=== PATIENT | male | born 1970 | race Caucasian/White ===

== ENCOUNTER 2020-09-19 13:24 | Outpatient (REF) | payer MEDICARE, MEDICAID, SELFPAY ==
[2020-09-19 14:39] LABS: Basophils Absolute Auto 0.1 X10*3/uL (0.0-0.2); Basophils Percent Auto 0.9 % (0-2); Eosinophils Absolute Auto 0.2 X10*3/uL (0.0-0.4); Eosinophils Percent Auto 2.1 % (0-4); Hematocrit 42.6 % (42-52); Hemoglobin 14.3 g/dl (14.0-18.0); Imm Gran Abs Auto 0.05 X10*3/uL (0.00-0.03); Imm Gran Pct Auto 0.5 % (0.0-0.4); MANUAL DIFF FLAG SCAN; Mean Corpuscular HGB Conc 33.6 g/dl (31.0-36.0); Mean Corpuscular Hemoglobin 29.5 pg (27.0-33.0); Monocytes Absolute Auto 1.1 X10*3/uL (0.1-1.2); Monocytes Percent Auto 10.3 % (2-11); Neutrophils Absolute Auto 5.9 X10*3/uL (2.0-8.3); Neutrophils Percent Auto 57.2 % (45-73); PLT CLUMP 1; Red Blood Count 4.84 X10*6/uL (4.60-5.80); Red Cell Distribution Width 12.7 % (11.0-16.0); SCAN SMEAR FLAG 1
[2020-09-19 14:55] LABS: Platelet Count 221 X10*3/uL (160-400); White Blood Count 10.3 X10*3/uL (4.8-10.8)
[2020-09-19 14:56] LABS: SLIDE REVIEW VERIFIED
[2020-09-19 15:07] LABS: Alanine Aminotransferase 48 U/L (0-40); Albumin Level 4.3 g/dL (3.5-5.0); Alkaline Phosphatase 59 U/L (39-117); Anion Gap 11 (12-20); Aspartate Amino Transferase 31 U/L (5-37); Blood Urea Nitrogen 11 mg/dL (9-16); Calcium 8.9 mg/dL (8.4-10.2); Carbon Dioxide 28 mmol/L (22-29); Chloride 102 mmol/L (96-108); Cholesterol 175 mg/dL; Estimated Glomerular Filt Rate > 60; Glucose Random 89 mg/dL (60-115); HDL Cholesterol 41 mg/dL; LDL Cholesterol Calculated 99 mg/dl; Potassium 4.4 mmol/L (3.3-5.1); Sodium 137 mmol/L (135-145); Total Protein 6.6 g/dL (6.5-8.0); Triglycerides 179 mg/dL
[2020-09-19 15:27] LABS: Free T4 (Free Thyroxine) 0.99 ng/dL (0.71-1.85); Thyroid Stimulating Hormone 1.31 uIU/mL (0.32-4.0)
[2020-09-20 18:56] LABS: Folate 15.5 ng/mL (> or = 4.0); Vitamin B12 270 pg/mL (200-900)
== END 2020-09-19 13:25 | disposition home or self-care (01) ==
LOC: HO.LAB 13:24
PROVIDERS: PCP Internal Medicine; Visit Provider Internal Medicine
DX: E66.01 Morbid (severe) obesity due to excess calories (principal); E78.00 Pure hypercholesterolemia, unspecified; Z68.41 Body mass index [BMI] 40.0-44.9, adult
CPT/HCPCS: 36415; 80053; 80061; 82607; 82746; 84439; 84443; 85025

== ENCOUNTER → 2021-08-19 13:05 | Outpatient (BNVA) | payer MEDICARE, MEDICAID, SELFPAY | PROVIDERS: PCP Internal Medicine; Referring Provider Internal Medicine; Visit Provider Physician Assistant | DX: Z12.11 Encounter for screening for malignant neoplasm of colon (principal) | CPT/HCPCS: 99202 ==

== ENCOUNTER 2023-09-07 10:21 | Outpatient (AMB) | payer MEDICARE, MEDICAID, SELFPAY ==
--- NOTE | 2023-09-07 10:22 | A.OFFPC_ITS ---
Vital Signs 09/07/23 10:23 Height 6 ft 2 in Weight 287 lb BMI 36.8 BP 106/68 Blood Pressure Location Lt brachial Position Sitting Pulse 64 Pulse Source Pulse Oximeter Pulse Oximetry (%) 99 Oxygen Delivery Method Room Air Intake Visit Reasons: Annual exam Intake Note: Patient is here today for a physical. 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 Technician Required: No Allergies Penicillins [PENICILLINS] Allergy (Mild, Verified 09/07/23 10:23) UNKNOWN Medication List - Last Reconciled 09/07/23 by Geoff Jackson MD acetaminophen 650 mg (2 x 325 mg) PO Q4H PRN bisacodyl (Dulcolax (bisacodyl)) 10 mg (2 x 5 mg) PO ONCE 1 day cholecalciferol (vitamin D3) (Vitamin D3) 25 mcg PO QAM clonazepam 2 mg PO BID PRN dextromethorphan-guaifenesin 5-100 mg/5 mL (Robitussin Cough-Chest Congestion DM) 10 mL PO .Q 4 hours PRN docusate calcium (Stool Softener (docusate calcium)) 240 mg PO QAM fluoxetine (Prozac) 20 mg PO DAILY lorazepam 2 mg PO DAILY PRN magnesium citrate 150 mL PO DAILY polyethylene glycol 3350 (Miralax) 238 grams PO ONCE 1 day risperidone (Risperdal) 2 mg PO BEDTIME risperidone (Risperdal) 1 mg PO DAILY Tobacco use date assessed: 09/07/23 Dental Screening Dental Screen Date: 09/07/23 HPI Annual exam HPI Details 53-year-old obese male with mental behav ior problem, autism coming in for physical exam last seen in November 2022. Patient had a Cologuard test October 13-. [facility] Medical History (Updated 12/15/22 @ 15:15 by Geoff Jackson MD) COVID-19 vaccine series completed Colon cancer screening Obesity (BMI 30-39.9) Vitamin B12 deficiency Obsessive compulsive disorder Impulse control disorder Mental and behavioral problem Autism Surgical History No pertinent past surgical history Family History Father No problems noted. Mother Colon cancer Social History Household Members Other:: resides in skilled nursing Housing: Other Housing Other:: skilled nursing Patient Tobacco Use Status: Never used Tobacco e-Cigarette/Vaping Use: Never Used Second Hand Smoke Exposure: No Current occupational status: disabled Cognitive needs: No Hearing needs: No Vision needs: No Questionnaire PHQ-9 Over the last 2 weeks, how often have you been bothered by any of the following problems? 1. Little interest or pleasure in doing things: not at all 2. Feeling down, depressed, or hopeless: not at all 3. Trouble falling or staying asleep, or sleeping too much: not at all 4. Feeling tired or having little energy: not at all 5. Poor appetite or overeating: not at all 6. Feeling bad about yourself - or that you are a failure or have let yourself or your family down: not at all 7. Trouble concentrating on things, such as reading the newspaper or watching television: not at all 8. Moving or speaking so slowly that other people could have noticed. Or the opposite - being so fidgety or restless that you have been moving around a lot more than usual: not at all 9. Thoughts that you would be better off or of hurting yourself in some way: not at all Total score: 0 Depression Screening Interpretation: Negative Depression Screening Done: Yes Source: Developed by Drs. Stew Marie, Luisa Holden, Bowen Garcia and colleagues, with an educational syl from [employer]. Thrive Questionnaire Date Thrive assessed: 09/07/23 I am a: Parent/Caregiver What is your living situation today?: I have a steady place to live Within the past 12 months, did the food you bought not last and you didn't have the money to get more?: Never true Within the past 12 months, did you worry whether your food would run out before you got money to buy more?: Never true Do you have trouble paying for medicines?: No Do you have trouble getting transportation to medical appointments?: No Do you have trouble paying your heating and electricity bill?: No Do you have trouble taking care of your child, family member or friend?: No Do you have trouble with day-to-day activities such as bathing, preparing meals, shopping, managing finances, etc.?: No Are you currently unemployed and looking for a job?: No Are you interested in more education?: No Please select the resources that you would like help with: None Currently or been in a relationship where the following occur: no concerns reported THRIVE Score: 0 AUDIT C Alcohol Use Questionnaire (AUDIT-C) 1. How often do you have a drink containing alcohol?: Never 3. How often do you have six or more drinks on one occasion?: Never Total Score: 0 KAILEY-7 AMB Questionnaire KAILEY-7 Date KAILEY - 7 assessed: 09/07/23 Feeling nervous, anxious, or on edge: 0 = Not at all Not being able to stop or control worryin = Not at all Worrying too much about different things: 0 = Not at all Trouble relaxin = Not at all Being so restless that it is hard to sit still: 0 = Not at all Becoming easily annoyed or irritable: 0 = Not at all Feeling afraid as if something awful might happen: 0 = Not at all Total KAILEY-7 score (0-4 normal; 5-9 mild; 10-14 moderate; 15-21 severe): 0 Source: Developed by Drs. Stew Marie, Luisa Holden, Bowen Garcia and colleagues, with an educational syl from [employer]. Review of Systems Const Denies poor appetite and Denies weakness Eyes Denies no additional complaints ENT Reports Normal hearing present, Denies dizziness, Denies nasal congestion, Denies tinnitus and Denies sore throat Card Denies chest pain, Denies syncope, Denies rapid heart rate and Denies dyspnea Resp Denies cough and Denies dyspnea GI Denies change in stool character, Reports constipation, Denies diarrhea, Denies nausea and Denies vomiting Denies dysuria and Denies urinary frequency Neuro Reports Normal hearing present, Denies confusion, Denies dizziness, Denies syncope and Denies weakness Psych Denies confusion Physical exam (Primary Care) Vital Signs: Last Vital Signs Pulse 64 09/07/23 10:23 BP 106/68 09/07/23 10:23 Pulse Ox 99 09/07/23 10:23 Oxygen Delivery Method Room Air 09/07/23 10:23 BMI result Body Mass Index 36.8 Tobacco/Smoking Status: Tobacco use Status Tobacco use date assessed 09/07/23 09/07/23 10:29 Patient Tobacco Use Status Never used Tobacco 09/07/23 10:29 e-Cigarette/Vaping Use Never Used 09/07/23 10:29 PHQ-9: PHQ-9 Score PHQ-9: Total score 0 09/07/23 10:29 Depression Screening Interpretation: Negative Thrive Assessment: Date of Thrive Assessment Date Thrive assessed 09/07/23 09/07/23 10:29 Currently or been in a relationship where the following occur: no concerns reported Const General: No confusion Orientation/consciousness: No confusion HENMT Head: Yes normocephalic Ears: external ears normal and TM's normal bilaterally Face and sinus: Yes normal facial exam Mouth: moist mucous membranes Throat: Yes tonsils normal Eyes Conjunctivae: conjunctivae normal Pupils: Equal, round and reactive pupils present and Pupil accommodation reflex normal Direct Ophthalmoscopy: normal light reflex Neck Neck: No lymphadenopathy Thyroid: Thyroid normal Chest Chest palpation & inspection: normal inspection of the chest Resp Effort & Inspection: normal respiratory effort and no audible wheezes Auscultation: clear to auscultation bilaterally, no crackles, no wheezes and lung sounds not diminished Cardio Rate: regular rate Rhythm: regular rhythm Peripheral pulses: radial pulses present and dorsalis pedis present GI Other: Cologuard test 2022- Palpation (GI): no masses Auscultation: normal bowel sounds and normoactive bowel sounds Rectal Exam - Male: Yes deferred Male General Exam: Yes normal external exam Skin General skin exam: no rashes or lesions noted Rashes: no rashes Neuro General: No confusion Cranial nerves: Yes Equal, round and reactive pupils present and Yes Normal hearing present Cognition (Neuro): normal cognition Gait exam (Neuro): Normal gait present Motor exam (neuro): 5/5 motor strength present throughout Deep tendon reflexes (DTR's): Right brachioradialis reflex intensity grade: 2+, Left brachioradialis reflex intensity grade: 2+, Right patellar reflex intensity grade: 2+ and Left patellar reflex intensity grade: 2+ Extrem General: No edema Assessment and Plan Assessment & Plan (1) Annual physical exam: Code(s): Z00.00 - Encounter for general adult medical examination without abnormal findings (2) Obesity: Code(s): E66.9 - Obesity, unspecified Qualifiers: Obesity type: due to excess calories Obesity classification: adult class 3 (BMI >= 40) Serious obesity comorbidity presence: without serious comorbidity Body mass index: BMI 40.0-44.9 Qualified Code(s): E66.01 - Morbid (severe) obesity due to excess calories; Z68.41 - Body mass index [BMI]40.0- 44.9, adult Plan: Continue with diet and exercise (3) Mental and behavioral problem: Code(s): F48.9 - Nonpsychotic mental disorder, unspecified; 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 Mackay Code(s): F84.0 - Autistic disorder Plan: Continue with psychiatry exam Coding Level of Care Code Est Pt Prev Care 40-64y(81842) Diagnoses Annual physical exam Z00.00 Class 3 severe obesity due to excess calories without serious comorbidity with body mass index (BMI) of 40.0 to 44.9 in adult E66.01; Z68.41 Obesity type: due to excess calories Obesity classification: adult class 3 (BMI >= 40) Serious obesity comorbidity presence: without serious comorbidity Body mass index: BMI 40.0-44.9 Mental and behavioral problem F48.9; F69 Autism F84.0
[2023-09-07 10:23] VITALS: BP 106/68; PULSE 64; O2SAT 99; BMI 36.8
== END 2023-09-07 12:36 | disposition home or self-care (01) ==
PROVIDERS: Visit Provider Internal Medicine
DX: Z00.00 Encounter for general adult medical examination without abnormal findings (principal); E66.01 Morbid (severe) obesity due to excess calories; Z68.41 Body mass index [BMI] 40.0-44.9, adult; F48.9 Nonpsychotic mental disorder, unspecified; F69 Unspecified disorder of adult personality and behavior; F84.0 Autistic disorder
CPT/HCPCS: 99396

== ENCOUNTER 2023-12-10 11:22 | Outpatient (AMB) | payer MEDICARE, MEDICAID, SELFPAY ==
[2023-12-10 11:23] VITALS: BP 128/80; PULSE 65; O2SAT 99; BMI 36.1
--- NOTE | 2023-12-10 11:23 | A.OFFVIS_ITS ---
Intake Vital Signs 12/10/23 11:23 Height 6 ft 2 in Weight 281 lb BMI 36.1 BP 128/80 Blood Pressure Location Lt brachial Position Sitting Pulse 65 Pulse Source Pulse Oximeter Pulse Oximetry (%) 99 Oxygen Delivery Method Room Air Intake Visit Reasons: AWV Allergies Penicillins [PENICILLINS] Allergy (Mild, Verified 12/10/23 11:23) UNKNOWN HPI AWV HPI Details 53-year-old obese male with autism nash castano in for annual well visit last seen in August 2023. Had a physical at that time Cologuard testing September 2022. Noted last blood work in 2020 to have elevated liver function test. [facility]ed [facility] Medical History (Updated 12/15/22 @ 15:15 by Geoff Jackson MD) COVID-19 vaccine series completed Colon cancer screening Obesity (BMI 30-39.9) Vitamin B12 deficiency Obsessive compulsive disorder Impulse control disorder Mental and behavioral problem Autism Surgical History No pertinent past surgical history Family History (Updated 12/10/23 @ 11:24 by Shandra Lama CMA) Father No problems noted. Mother Colon cancer Social History Household Members Other:: resides in [facility] Housing: Other Housing Other:: [facility] Patient Tobacco Use Status: Never used Tobacco e-Cigarette/Vaping Use: Never Used Second Hand Smoke Exposure: No Current occupational status: disabled Cognitive needs: No Hearing needs: No Vision needs: No Questionnaire Medicare Wellness Checkup What is your age?: 65-69 (18-64) What gender do you identify with?: male During the past 4 weeks, how much have you been bothered by emotional problems such as feeling anxious, depressed, irritable, sad or downhearted, and blue?: not at all During the past 4 weeks, has your physical & emotional health limited your social activities with family, friends, neighbors, or groups?: not at all During the past 4 weeks, how much bodily pain have you generally had?: no pain During the past 4 weeks, was someone available to help you if you needed & wanted help?: yes, as much as I wanted During the past 4 weeks, what was the hardest physical activity you could do for at least 2 minutes?: very heavy Can you get to places out of walking distance without help? (For eg., can you travel alone on buses, taxis or drive your car?): Yes Can you go shopping for groceries or clothes without someone's help?: No Can you prepare your own meals?: No Can you do your housework without help?: Yes Because of any health problems, do you need the help of another person with your personal care needs such as eating, bathing, dressing or getting around the house?: No Can you handle your own money without help?: No During the past 4 weeks, how would you rate your health in general?: good During the past 4 weeks how have things been going for you?: pretty well Are you having difficulties driving your car?: not applicable, I don't use a car Do you always fasten your seat belt when you are in a car?: yes, usually During past 4 weeks, have you been bothered by the following: never: Falling or dizzy when standing up, Sexual problems?, Trouble eating well?, Teeth or denture problems?, Problems using the telephone? and Tiredness or fatigue? Have you fallen 2 or more times in the past year?: No Are you afraid of falling?: No Are you a smoker?: no During the past 4 weeks, how many drinks of wine, beer, or other alcoholic beverages did you have?: no alcohol at all Do you exercise for about 20 minutes 3 or more times a week?: yes, most of the time Have you been given information to help with the following?: no: Hazards in your house that might hurt you? and no: Keeping track of your medications? How often do you have trouble taking medicines the way you have been told to take them?: I always take medicine as prescribed How confident are you that you can control & manage most of your health problems?: very confident What is your race?: White PHQ-9 Over the last 2 weeks, how often have you been bothered by any of the following problems? 1. Little interest or pleasure in doing things: not at all 2. Feeling down, depressed, or hopeless: not at all 3. Trouble falling or staying asleep, or sleeping too much: not at all 4. Feeling tired or having little energy: not at all 5. Poor appetite or overeating: not at all 6. Feeling bad about yourself - or that you are a failure or have let yourself or your family down: not at all 7. Trouble concentrating on things, such as reading the newspaper or watching television: not at all 8. Moving or speaking so slowly that other people could have noticed. Or the opposite - being so fidgety or restless that you have been moving around a lot more than usual: not at all 9. Thoughts that you would be better off or of hurting yourself in some way: not at all Total score: 0 Depression Screening Interpretation: Negative Depression Screening Done: Yes 81502 - PHQ-9 Billing: Yes Source: Developed by Drs. Stew Marie, Liusa Holden, Bowen Garcia and colleagues, with an educational syl from [employer]. Thrive Questionnaire Date Thrive assessed: 12/10/23 I am a: Parent/Caregiver What is your living situation today?: I have a steady place to live Within the past 12 months, did the food you bought not last and you didn't have the money to get more?: Never true Within the past 12 months, did you worry whether your food would run out before you got money to buy more?: Never true Do you have trouble paying for medicines?: No Do you have trouble getting transportation to medical appointments?: No Do you have trouble paying your heating and electricity bill?: No Do you have trouble taking care of your child, family member or friend?: No Do you have trouble with day-to-day activities such as bathing, preparing meals, shopping, managing finances, etc.?: No Are you currently unemployed and looking for a job?: No Are you interested in more education?: No Please select the resources that you would like help with: None Currently or been in a relationship where the following occur: no concerns reported THRIVE Score: 0 KAILEY-7 AMB Questionnaire KAILEY-7 Date KAILEY - 7 assessed: 12/10/23 Feeling nervous, anxious, or on edge: 0 = Not at all Not being able to stop or control worryin = Not at all Worrying too much about different things: 0 = Not at all Trouble relaxin = Not at all Being so restless that it is hard to sit still: 0 = Not at all Becoming easily annoyed or irritable: 0 = Not at all Feeling afraid as if something awful might happen: 0 = Not at all Total KAILEY-7 score (0-4 normal; 5-9 mild; 10-14 moderate; 15-21 severe): 0 Source: Developed by Drs. Stew Marie, Luisa Holden, Bowen Garcia and colleagues, with an educational syl from [employer]. Review of Systems Const Denies poor appetite and Denies weakness Eyes Denies no additional complaints ENT Reports Normal hearing present, Denies dizziness, Denies nasal congestion, Denies tinnitus and Denies sore throat Card Denies chest pain, Denies syncope, Denies rapid heart rate and Denies dyspnea Resp Denies cough and Denies dyspnea GI Denies change in stool character, Reports constipation, Denies diarrhea, Denies nausea and Denies vomiting Denies dysuria and Denies urinary frequency Neuro Reports Normal hearing present, Denies confusion, Denies dizziness, Denies syncope and Denies weakness Psych Denies confusion Physical Exam Vital Signs: Last Vital Signs Pulse 65 12/10/23 11:23 BP 128/80 12/10/23 11:23 Pulse Ox 99 12/10/23 11:23 Oxygen Delivery Method Room Air 12/10/23 11:23 BMI result Body Mass Index 36.1 Const General: alert and awake; No confusion Orientation/consciousness: No confusion HEENT Head: Yes normocephalic Ears: external ears normal and TM's normal bilaterally Face and sinus: Yes normal facial exam Mouth: moist mucous membranes Throat: Yes tonsils normal Eyes Conjunctivae: conjunctivae normal Pupils: Equal, round and reactive pupils present and Pupil accommodation reflex normal Direct Ophthalmoscopy: normal light reflex Neck Neck: No lymphadenopathy Thyroid: Thyroid normal Chest Chest palpation & inspection: normal inspection of the chest Resp Effort & Inspection: normal respiratory effort and no audible wheezes Auscultation: clear to auscultation bilaterally, no crackles, no wheezes and lung sounds not diminished Cardio Rate: regular rate Rhythm: regular rhythm Peripheral pulses: radial pulses present and dorsalis pedis present GI Palpation (GI): no masses Auscultation: normal bowel sounds and normoactive bowel sounds Rectal Exam - Male: Yes deferred Skin General skin exam: no rashes or lesions noted Rashes: no rashes Neuro General: deep tendon reflexes 2+ bilaterally and No confusion Cranial nerves: Yes Equal, round and reactive pupils present, Yes Midline tongue present, Yes Normal hearing present and Yes Ability to bilaterally elevate shoulders present Cognition (Neuro): normal cognition Gait exam (Neuro): Normal gait present Motor exam (neuro): 5/5 motor strength present throughout Deep tendon reflexes (DTR's): Right brachioradialis reflex intensity grade: 2+, Left brachioradialis reflex intensity grade: 2+, Right patellar reflex intensity grade: 2+ and Left patellar reflex intensity grade: 2+ Extrem General: No edema Assessment & Plan Assessment & Plan (1) Encounter for subsequent annual wellness visit (AWV) in Medicare patient: Code(s): Z00.00 - Encounter for general adult medical examination without abnormal findings Plan: Patient is advised to eat healthy, keep well hydrated, keep active and have adequate sleep. (2) Obesity: Code(s): E66.9 - Obesity, unspecified Qualifiers: Obesity type: due to excess calories Obesity classification: adult class 3 (BMI >= 40) Serious obesity comorbidity presence: without serious comorbidity Body mass index: BMI 40.0-44.9 Qualified Code(s): E66.01 - Morbid (severe) obesity due to excess calories; Z68.41 - Body mass index [BMI]40.0- 44.9, adult Plan: Diet and exercise (3) Autism: Comment: Dr. Mackay Code(s): F84.0 - Autistic disorder Plan: Continue to follow-up with psychiatry on clonazepam fluoxetine lorazepam risperidone. Orders: Orders Complete Blood Count Auto Diff Today F84.0 - Autistic disorder Comprehensive Met. Panel Today F84.0 - Autistic disorder Free T4 (Free Thyroxine) Today F84.0 - Autistic disorder Thyroid Stimulating Hormone Today F84.0 - Autistic disorder Vitamin B12 and Folate Today F84.0 - Autistic disorder Prostate Specific Antigen Scr Today F84.0 - Autistic disorder Lipid Panel Today E78.00 - Pure hypercholesterolemia, unspecified, F84.0 - Autistic disorder Quality Reporting (2019) Depression/Bipolar (159/160/161/177) PHQ-9: Total score: 0 Coding Level of Care Code Medicare Subsequent (G0439) Diagnoses Encounter for subsequent annual wellness visit (AWV) in Medicare patient Z00.00 Class 3 severe obesity due to excess calories without serious comorbidity with body mass index (BMI) of 40.0 to 44.9 in adult E66.01; Z68.41 Obesity type: due to excess calories Obesity classification: adult class 3 (BMI >= 40) Serious obesity comorbidity presence: without serious comorbidity Body mass index: BMI 40.0-44.9 Autism F84.0
== END 2023-12-10 14:08 | disposition home or self-care (01) ==
PROVIDERS: PCP Internal Medicine; Visit Provider Internal Medicine
DX: Z00.00 Encounter for general adult medical examination without abnormal findings (principal); E66.01 Morbid (severe) obesity due to excess calories; Z68.41 Body mass index [BMI] 40.0-44.9, adult; F84.0 Autistic disorder
CPT/HCPCS: G0439

== ENCOUNTER 2024-07-19 09:59 | Emergency (ER) | payer MEDICARE, MEDICAID, SELFPAY ==
--- NOTE | ~2024-07-19 | XR_ITS ---
EXAMINATION: XR KNEE, LEFT CLINICAL INFORMATION: Pain status post fall. COMPARISON: None available. TECHNIQUE: 6 views of the left knee. FINDINGS: Moderate joint effusion. Mild tricompartmental degenerative changes with narrowing of the medial and patellofemoral compartments. Small ossific/calcific focus overlying the lateral compartment on the frontal view, possibly representing sequela of trauma, loose body. Sclerotic foci overlying the distal femur and proximal tibia of uncertain etiology, possibly bone islands. Small amorphous soft tissue calcification in the partially imaged mid calf. XR/XR knee LT 4V IMPRESSION: 1. Moderate joint effusion. 2. Small ossific/calcific focus overlying the lateral compartment frontal view, possibly representing sequela of trauma, loose body. 3. Sclerotic foci overlying the distal femur and proximal tibia of uncertain etiology, possibly bone islands. 4. Mild tricompartmental degenerative changes. 5. CT scan recommended for further evaluation. This study was presented today July 19, 2024 for interpretation. Stat results provided at this time as requested by referring provider. Electronically signed by: Mena Daniel MD 07/19/2024 11:00 AM ASHOK BOND
[2024-07-19 10:00] VITALS: BP 113/70; PULSE 97; RESP 16; TEMP 37; O2SAT 98; BMI 37.2
--- NOTE | 2024-07-19 11:02 | ED.LOWEXIN ---
HPI - Extremity Injury (Lower) General Chief Complaint: Extremity Injury, Lower Stated Complaint: Knee pain Time Seen by Provider: 07/19/24 10:23 Source: patient and other (retirement staff) Mode of arrival: ambulatory Limitations: other (developmental delay, poor historian) History of Present Illness ED Provider: Lin Plummer PA-C HPI Narrative: 53 yo male with history of Autism, obesity, impulse control disorder who presents to the ER for evaluation of left knee pain that retirement reports he c/o today. He was noted to be walking with a limp today. They think he fell because he has superficial scratches and abrasions on the left knee. Unknown when he fell or what happened. He states the pain is getting better. He cannot say when it started or what happened. He denies ankle pain or hip pain. MD complaint: knee injury Onset (ago): unknown Type of Injury: unknown Relieving factors: immobilization and rest Exacerbating factors: weight bearing Context: fall Associated symptoms: ambulatory Other symptoms: none Related Data Home Medications ?Medication ?Instructions ?Recorded ?Confirmed clonazepam 2 mg tablet 2 mg PO BID PRN Anxiety 09/06/20 09/07/23 fluoxetine 20 mg capsule (Prozac) 20 mg PO DAILY 09/06/20 09/07/23 lorazepam 2 mg tablet 2 mg PO DAILY PRN Anxiety 09/06/20 09/07/23 risperidone 1 mg tablet (Risperdal) 1 mg PO DAILY 09/06/20 09/07/23 risperidone 2 mg tablet (Risperdal) 2 mg PO BEDTIME 09/06/20 09/07/23 Previous Rx's ?Medication ?Instructions ?Recorded magnesium citrate 150 ml PO DAILY #296 mL 12/13/21 bisacodyl 5 mg tablet,delayed 10 mg (2 x 5 mg) PO ONCE 1 day #14 11/13/22 release (Dulcolax (bisacodyl)) tabs polyethylene glycol 3350 17 238 g PO ONCE 1 day #238 grams 11/13/22 gram/dose oral powder (Miralax) cholecalciferol (vitamin D3) 25 25 mcg PO QAM #90 caps 08/24/23 mcg (1,000 unit) capsule (Vitamin D3) acetaminophen 325 mg tablet 650 mg (2 x 325 mg) PO Q4H PRN for 03/24/24 headache #30 tabs dextromethorphan-guaifenesin 5 10 ml PO .Q 4 hours PRN cough #237 03/24/24 mg-100 mg/5 mL oral liquid mL (Robitussin Cough-Chest Congestion DM) docusate calcium 240 mg capsule 240 mg PO QAM #90 caps 05/25/24 (Stool Softener (docusate calcium)) acetaminophen 325 mg tablet 975 mg (3 x 325 mg) PO Q4H PRN 07/19/24 (Tylenol) mild pain (scale score 1-4) #30 tabs ibuprofen 600 mg tablet 600 mg PO Q8H PRN pain #20 tabs 07/19/24 Allergies Allergy/AdvReac Type Severity Reaction Status Date / Time Penicillins [PENICILLINS] Allergy Mild UNKNOWN Verified 07/19/24 10:02 Review of Systems Review of Systems: Yes all other systems are reviewed and are negative [facility] Past Medical History Medical History (Updated 07/19/24 @ 10:57 by SIVA Chisholm) COVID-19 vaccine series completed Colon cancer screening Obesity (BMI 30-39.9) Vitamin B12 deficiency Obsessive compulsive disorder Impulse control disorder Mental and behavioral problem Autism Surgical History No pertinent past surgical history Family History Family History (Updated 12/10/23 @ 11:24 by Shandra Lama CMA) Father No problems noted. Mother Colon cancer Social History Social History Household Members Other:: resides in retirement Housing: Other Housing Other:: retirement Patient Tobacco Use Status: Never used Tobacco e-Cigarette/Vaping Use: Never Used Second Hand Smoke Exposure: No Advance Directives: Yes Advance Directives Information Provided: Yes Advance Directives on File: No Current occupational status: disabled Cognitive needs: No Hearing needs: No Vision needs: No Physical Exam Vital Signs: Vital Signs: Last Vital Signs Temp 98.6 F 07/19/24 11:28 Pulse 97 07/19/24 11:28 Resp 16 07/19/24 11:28 BP 113/70 07/19/24 11:28 Pulse Ox 98 07/19/24 11:28 O2 Del Method Room Air 07/19/24 11:28 BMI result Body Mass Index 37.2 Appearance: Alert middle aged male. No acute distress. HEENT: normal inspection CVS: Normal heart rate and rhythm. Pulses normal. Respiratory: No respiratory distress. Skin: Skin warm and dry. Normal skin color. Normal skin turgor. No rashes. Extremities: left knee with multiple superficial abrasions over the tibial plateau, FROM both actively and passively. mild generalized swelling. negative anterior drawer test. Neuro: developmental delay, difficulty to understand speech, antalgic gait Medical Decision Making Medical Decision Making MDM Narrative: 53 yo obese male w/ hx autism presents from retirement for evaluation of limping gait, abrasions to left knee, assumed fall. XR is showing moderate effusion and possible loose body from trauma. CT scan recommended. case d/w Dr. Child. this can be done nonemergent as an outpatient. patient frustrated and does not want to stay for any further testing. he is with retirement staff who report he can get violent in the medical setting. risk vs benefit considered and there is no emergent need for the CT today. he has a steady gait. xuan wrap applied. stable for d/c home with prn ibuprofen and tylenol. ortho follow up Differential Diagnosis Differential Diagnoses: The differential diagnosis associated with the presentation includes knee contusion, knee sprain, ligamentous injury, tibial plateau fracture, patella fracture Independent Interpretation I performed an independent interpretation of an: Plain X-Ray Interpretation: xr with effusion, agree w radiology read Radiology Impression Discussion of test interpretation with radiology: I have reviewed the radiologist's reading. Radiologist Impression: XR/XR knee LT 4V IMPRESSION: 1. Moderate joint effusion. 2. Small ossific/calcific focus overlying the lateral compartment frontal view, possibly representing sequela of trauma, loose body. 3. Sclerotic foci overlying the distal femur and proximal tibia of uncertain etiology, possibly bone islands. 4. Mild tricompartmental degenerative changes. 5. CT scan recommended for further evaluation. Independent Historian Clinical information obtained from an independent historian. History obtained from or confirmed by: Other (retirement staff) External Record Review External record reviewed: Outpatient record and Prior outpatient labs Tests considered The following testing was considered but not selected: CT scan knee Prescription Management I considered prescription management with: Pain Medication Chronic Conditions Patient?s care impacted by: Other (autism, ocd, impulse control disorder) Social Determinants Patient?s care significantly limited by Social Determinants of Health including: Other Social Determinant of Health Critical Care Time Critical Care Time Critical Care Time: No Discharge Plan Discharge Clinical Impression: Left knee pain Qualifiers: Chronicity: acute Qualified Code(s): M25.562 - Pain in left knee Patient Disposition: Home, Self-Care Instructions: Knee Pain (ED) Additional Instructions: Knee xray showed some swelling/fluid in the joint as well as a small bony lesion which is likely from a fall. A NONEMERGENT CT scan is recommended for follow up. Rest your knee and elevate your it when possible. Recommend XUAN wrap for support and compression. Use ice several times per day for the next 48 hours. You may bear weight as tolerated. Take Motrin and/or Tylenol as needed for pain. Follow up with Orthopedics for further evaluation. XR/XR knee LT 4V IMPRESSION: 1. Moderate joint effusion. 2. Small ossific/calcific focus overlying the lateral compartment frontal view, possibly representing sequela of trauma, loose body. 3. Sclerotic foci overlying the distal femur and proximal tibia of uncertain etiology, possibly bone islands. 4. Mild tricompartmental degenerative changes. 5. CT scan recommended for further evaluation. Prescriptions: New ibuprofen 600 mg tablet 600 mg PO Q8H PRN (Reason: pain) Qty: 20 0RF acetaminophen [Tylenol] 325 mg tablet 975 mg PO Q4H PRN (Reason: mild pain (scale score 1-4)) Qty: 30 0RF No Action magnesium citrate Solution 150 ml PO DAILY Qty: 296 0RF Rx Instructions: take as directed prior to colonoscopy polyethylene glycol 3350 [Miralax] 17 gram/dose powder 238 g PO ONCE 1 Days Qty: 238 0RF Rx Instructions: Take as directed by mouth the day before your procedure. bisacodyl [Dulcolax (bisacodyl)] 5 mg tablet,delayed release (DR/EC) 10 mg PO ONCE 1 Days Qty: 14 0RF Rx Instructions: take orally as directed prior to colonoscopy cholecalciferol (vitamin D3) [Vitamin D3] 25 mcg (1,000 unit) capsule 25 mcg PO QAM Qty: 90 3RF acetaminophen 325 mg tablet 650 mg PO Q4H PRN (Reason: for headache) Qty: 30 5RF Robitussin Cough-Chest Joaquín DM 5-100 mg/5 mL liquid 10 ml PO .Q 4 hours PRN (Reason: cough) Qty: 237 0RF docusate calcium [Stool Softener (docusate kane)] 240 mg capsule 240 mg PO QAM Qty: 90 3RF lorazepam 2 mg tablet 2 mg PO DAILY PRN (Reason: Anxiety) Patient Comments: 90min before procedure and Q hour prn anxiety fluoxetine [Prozac] 20 mg capsule 20 mg PO DAILY risperidone [Risperdal] 2 mg tablet 2 mg PO BEDTIME risperidone [Risperdal] 1 mg tablet 1 mg PO DAILY clonazepam 2 mg tablet 2 mg PO BID PRN (Reason: Anxiety) Patient Comments: and 2 tabs 90 min before procedure Referrals: [facility] [place] [facility] [Provider Group] (left knee pain) Po,Geoff Nickerson MD [Primary Care Provider] - Interventions: ED Discharge Assessment Last Done: 07/19/24 11:28 Discharge Date/Time: 07/19/24 11:28 Print Language: Finnish
[2024-07-19 11:28] VITALS: BP 113/70; PULSE 97; RESP 16; TEMP 37; O2SAT 98
== END 2024-07-19 11:28 | disposition home or self-care (01) ==
PROVIDERS: Emergency Provider Student in an Organized Health Care Education/Training Program; PCP Internal Medicine
DX: M25.562 Pain in left knee (principal); Z79.899 Other long term (current) drug therapy
CPT/HCPCS: 73564; 99282; 99283

== ENCOUNTER 2024-08-16 11:10 | Outpatient (AMB) | payer MEDICARE, MEDICAID, SELFPAY ==
--- NOTE | 2024-08-16 11:15 | A.OFFPC_ITS ---
Vital Signs 08/16/24 11:17 Height 6 ft 2 in Weight 284 lb 6 oz BMI 36.5 BP 118/74 Blood Pressure Location Lt brachial Position Sitting Pulse 63 Pulse Source Pulse Oximeter Temp 97.1 F Temp Source Skin Pulse Oximetry (%) 98 Oxygen Delivery Method Room Air Intake Visit Reasons: ED follow up Intake Note: Patient is here to follow-up after a visit the emergency department at [facility] [place] Mediator Required: No Floor Winder: Present Accompanied by: STAFF Allergies Penicillins [PENICILLINS] Allergy (Mild, Verified 08/16/24 19:51) UNKNOWN Medication List - Last Reconciled 08/16/24 by ASUNCION Hawk acetaminophen (Tylenol) 975 mg (3 x 325 mg) PO Q4H PRN acetaminophen 650 mg (2 x 325 mg) PO Q4H PRN bisacodyl (Dulcolax (bisacodyl)) 10 mg (2 x 5 mg) PO ONCE 1 day cholecalciferol (vitamin D3) (Vitamin D3) 25 mcg PO QAM clonazepam 2 mg PO BID PRN dextromethorphan-guaifenesin 5-100 mg/5 mL (Robitussin Cough-Chest Congestion DM) 10 mL PO .Q 4 hours PRN docusate calcium (Stool Softener (docusate calcium)) 240 mg PO QAM fluoxetine (Prozac) 20 mg PO DAILY ibuprofen 600 mg PO Q8H PRN lorazepam 2 mg PO DAILY PRN magnesium citrate 150 mL PO DAILY polyethylene glycol 3350 (Miralax) 238 grams PO ONCE 1 day risperidone (Risperdal) 2 mg PO BEDTIME risperidone (Risperdal) 1 mg PO DAILY Tobacco use date assessed: 08/16/24 Dental Screening Dental Screen Date: 08/16/24 Did you have a dental visit in the last 12 months?: Yes Did you have a dental problem in the last 6 months where you did not have access to dental care?: No Was dental information given to patient?: Patient has dentist HPI ED follow up HPI Details The patient is a 54 y/o male presenting for post ED visit left knee pain and questioning unwitnessed fall The patient is a patient of Dr. Jackson and was last seen in the office on 12/10/23 His significant past medical history are obesity, vitamin B12 deficiency, mental and behavioral problem, and autism The patient was transferred to ED 07/19/24 Left Knee XR: showing moderate effusion and possible loose body from trauma. It was suspected the the patient had an unwitnessed fall. Per, staff when they found the patient limping he had an abrasion on the left knee. It was recommended that patient have an ct of the knee but the patient was frustrated in the hospital and wanted to leave. Hence, they recommended that the patient have the test done and outpatient basis. --labs ordered for upcoming physical janice t and ct of left knee ordered due to moderate effusion and possible loose body from. denies pain, +rom, no swellig noted. lungs clear, denies chest pain, no calf pain, no edema. Information taken from staff member, who reports that he will take the patient to get his labs done tomorrow for his annual appt with Dr. Matos [facility] Medical History COVID-19 vaccine series completed Colon cancer screening Obesity (BMI 30-39.9) Vitamin B12 deficiency Obsessive compulsive disorder Impulse control disorder Mental and behavioral problem Autism Surgical History No pertinent past surgical history Family History Father No problems noted. Mother Colon cancer Social History Household Members Other:: resides [facility] Housing: Other Housing Other:: [facility] Patient Tobacco Use Status: Never used Tobacco e-Cigarette/Vaping Use: Never Used Second Hand Smoke Exposure: No service: No Current occupational status: disabled Cognitive needs: No Hearing needs: No Vision needs: No Questionnaire PHQ-9 Over the last 2 weeks, how often have you been bothered by any of the following problems? 1. Little interest or pleasure in doing things: not at all 2. Feeling down, depressed, or hopeless: not at all 3. Trouble falling or staying asleep, or sleeping too much: not at all 4. Feeling tired or having little energy: not at all 5. Poor appetite or overeating: not at all 6. Feeling bad about yourself - or that you are a failure or have let yourself or your family down: not at all 7. Trouble concentrating on things, such as reading the newspaper or watching television: not at all 8. Moving or speaking so slowly that other people could have noticed. Or the opposite - being so fidgety or restless that you have been moving around a lot more than usual: not at all 9. Thoughts that you would be better off or of hurting yourself in some way: not at all Total score: 0 Depression Screening Interpretation: Negative Depression Screening Done: Yes 85950 - PHQ-9 Billing: Yes Source: Developed by Drs. Stew Marie, Luisa Holden, Bowen Garcia and colleagues, with an educational syl from [employer]. Thrive Questionnaire Date Thrive assessed: 08/16/24 I am a: Patient What is your living situation today?: I have a steady place to live Within the past 12 months, did the food you bought not last and you didn't have the money to get more?: Never true Within the past 12 months, did you worry whether your food would run out before you got money to buy more?: Never true Do you have trouble paying for medicines?: No Do you have trouble getting transportation to medical appointments?: No Do you have trouble paying your heating and electricity bill?: No Do you have trouble taking care of your child, family member or friend?: No Do you have trouble with day-to-day activities such as bathing, preparing meals, shopping, managing finances, etc.?: No Are you currently unemployed and looking for a job?: No Are you interested in more education?: No Please select the resources that you would like help with: None Currently or been in a relationship where the following occur: No concerns reported THRIVE Score: 0 AUDIT C Alcohol Use Questionnaire (AUDIT-C) 1. How often do you have a drink containing alcohol?: Never 3. How often do you have six or more drinks on one occasion?: Never Total Score: 0 Score Reviewed/Action Taken: Yes KAILEY-7 AMB Questionnaire KAILEY-7 Date KAILEY - 7 assessed: 08/16/24 Feeling nervous, anxious, or on edge: 0 = Not at all Not being able to stop or control worryin = Not at all Worrying too much about different things: 0 = Not at all Trouble relaxin = Not at all Being so restless that it is hard to sit still: 0 = Not at all Becoming easily annoyed or irritable: 0 = Not at all Feeling afraid as if something awful might happen: 0 = Not at all Total KAILEY-7 score (0-4 normal; 5-9 mild; 10-14 moderate; 15-21 severe): 0 Source: Developed by Drs. Stew Marie, Luisa Holden, Bowen Garcia and colleagues, with an educational syl from [employer]. KAILEY-7 Assessment Billing KAILEY-7 Assessment Tool: KAILEY-7 Assessment 60354 Review of Systems Const Details: Denies chills, Denies fatigue, Denies fever(s), Denies headache(s) and Denies weakness HEENT Denies change in vision, Denies dizziness, Denies headache(s), Denies hearing loss, Denies nasal congestion, Denies sinus pain, Denies sinus pressure and Denies sore throat Card Denies chest pain, Denies lightheadedness, Denies dyspnea and Denies other (palpitations) Resp Denies cough, Denies dyspnea and Denies wheezing GI Denies abdominal pain, Denies melena, Denies hematochezia, Denies change in bowel habits, Denies dyspepsia and Denies nausea Denies hematuria and Denies dysuria Musc Denies abnormal gait, Denies myalgias, Denies arthralgias, Denies numbness and Denies tingling Skin/Breast Denies rash, Denies unusual bruising and Denies wounds Neuro Denies abnormal gait, Denies dizziness, Denies headache(s), Denies memory loss, Denies numbness, Denies Sensory deficit (Neuro), Denies tingling and Denies weakness Psych Denies anxiety, Denies depression and Denies memory loss Endo Denies cold intolerance, Denies fatigue, Denies heat intolerance, Denies polydipsia and Denies polyuria Franky/Lymph Denies easy bleeding and Denies easy bruising Aller/Immun Denies wheezing Physical exam (Primary Care) Vital Signs: Last Vital Signs Temp 97.1 F 08/16/24 11:17 Pulse 63 08/16/24 11:17 BP 118/74 08/16/24 11:17 Pulse Ox 98 08/16/24 11:17 Oxygen Delivery Method Room Air 08/16/24 11:17 BMI result Body Mass Index 36.5 Tobacco/Smoking Status: Tobacco use Status Tobacco use date assessed 08/16/24 08/16/24 11:20 Patient Tobacco Use Status Never used Tobacco 08/16/24 11:20 e-Cigarette/Vaping Use Never Used 08/16/24 11:20 PHQ-9: PHQ-9 Score PHQ-9: Total score 0 08/16/24 20:28 Depression Screening Interpretation: Negative Thrive Assessment: Date of Thrive Assessment Date Thrive assessed 08/16/24 08/16/24 11:20 Currently or been in a relationship where the following occur: No concerns reported Const Other: General: no acute distress, well developed, alert and awake Nutritional Appearance: well nourished Orientation/consciousness: patient oriented x3 HENMT Head: Yes normocephalic and Yes atraumatic Eyes Pupils: Equal, round and reactive pupils present and Pupil accommodation reflex normal Neck Neck: Yes normal visual inspection, Yes no lymphadenopathy and Yes trachea midline Thyroid: Thyroid normal Lymphatic: no lymphadenopathy noted Chest Chest palpation & inspection: normal inspection of the chest Resp Effort & Inspection: normal respiratory effort Auscultation: clear to auscultation bilaterally Cardio Rate: regular rate Rhythm: regular rhythm Heart sounds: S1 normal heart sound present, S2 normal heart sound present, no gallops, no murmurs and no rubs GI Palpation (GI): abdomen rounded, soft and nontender to palpation Auscultation: normal bowel sounds General: Yes no CVA tenderness Back/Spine/Pelvis Back: no CVA tenderness Cervical Spine: cervical ROM normal and No Cervical spine tenderness Thoracic/Lumbar Spine: thoraco-lumbar ROM normal, No pain with thoraco-lumbar ROM, No thoracic spinal tenderness and No lumbar spinal tenderness other: left knee without edema, no erythema, +ROM without pain Skin General: warm and dry. Normal skin color. Normal skin turgor Lesions: no lesions Rashes: no rashes Trauma: no lacerations or abrasions Wounds: no wounds Nails: normal Neuro General: patient oriented x3, gait normal Cranial nerves: Yes Equal, round and reactive pupils present Cognition (Neuro): normal cognition Gait exam (Neuro): Normal gait present Motor exam (neuro): 5/5 motor strength present throughout Extrem General: Yes normal to inspection, No edema and No calf tenderness Psych Appearance: grossly normal Affect: normal affect Attitude: cooperative Thought process: Normal thought process present Coding Level of Care Code Est Pt Level 4 (69950) Diagnoses Autism F84.0 Mental and behavioral problem F48.9; F69 Injury of left knee, initial encounter S89.92XA Encounter type: initial encounter Additional Codes KAILEY-7 Assessment Billing - KAILEY-7 Assessment Tool: KAILEY-7 Assessment 95462 ([id number]) PHQ-9 - 15434 - PHQ-9 Billing: Yes ([id number]) Comment 34 Assessment & Plan Assessment & Plan (1) Autism: Comment: Dr. Mackay Code(s): F84.0 - Autistic disorder Category: Medical Plan: The patient is calm, slow to response to question and sometimes needed cue to staff member. He is currently on clonazepam 2 mg BID, fluoxetine 20 mg daily and lorazepam PRN Follow with psychiatry as scheduled (2) Mental and behavioral problem: Code(s): F48.9 - Nonpsychotic mental disorder, unspecified; F69 - Unspecified disorder of adult personality and behavior Category: Medical Plan: The patient appears calm, slow to response to question and sometimes needed cue to staff member. He is currently on clonazepam 2 mg BID, fluoxetine 20 mg daily and lorazepam PRN Follow with psychiatry as scheduled (3) Left knee injury: Code(s): S89.92XA - Unspecified injury of left lower leg, initial encounter Category: Medical Qualifiers: Encounter type: initial encounter Qualified Code(s): S89.92XA - Unspecified injury of left lower leg, initial encounter Plan: post ER visit for suspected unwitnessed fall and left knee injury XR of the left knee showed moderate effusion and possible loose body. CT w/o contrast ordered per recommendation Plan The patient is due for physical. He already has an appt with Dr. Jackson, Labs ordered and the staff member was encouraged to bring the patient to get his blood work done for his upcoming appt. Orders: Orders Complete Blood Count Auto Diff 08/16/24 E53.8 - Deficiency of other specified B group vitamins, F84.0 - Autistic disorder, Z00.00 - Encounter for general adult medical examination without abnormal findings Comprehensive [place]. Panel Fast 08/16/24 E53.8 - Deficiency of other specified B group vitamins, F84.0 - Autistic disorder, Z00.00 - Encounter for general adult medical examination without abnormal findings Vitamin D 25-OH Total 08/16/24 E53.8 - Deficiency of other specified B group vitamins, F84.0 - Autistic disorder, Z00.00 - Encounter for general adult medic al examination without abnormal findings UA CC w/rflx Micro + Cult 08/16/24 E53.8 - Deficiency of other specified B group vitamins, F84.0 - Autistic disorder, Z00.00 - Encounter for general adult medical examination without abnormal findings TSH reflex Free T4 08/16/24 E53.8 - Deficiency of other specified B group vitamins, F84.0 - Autistic disorder, Z00.00 - Encounter for general adult medical examination without abnormal findings Vitamin B12 and Folate 08/16/24 E53.8 - Deficiency of other specified B group vitamins, F84.0 - Autistic disorder, Z00.00 - Encounter for general adult medical examination without abnormal findings PSA,Total (Free>4and<10) 08/16/24 E53.8 - Deficiency of other specified B group vitamins, F84.0 - Autistic disorder, Z00.00 - Encounter for general adult medical examination without abnormal findings Lipid Panel 08/16/24 E53.8 - Deficiency of other specified B group vitamins, F84.0 - Autistic disorder, Z00.00 - Encounter for general adult medical examination without abnormal findings Glucose Fasting 08/16/24 E53.8 - Deficiency of other specified B group vitamins, F84.0 - Autistic disorder, Z00.00 - Encounter for general adult medical examination without abnormal findings CT knee LT wo IV con 08/16/24 M23.42 - Loose body in knee, left knee
[2024-08-16 11:17] VITALS: BP 118/74; PULSE 63; TEMP 36.2; O2SAT 98; BMI 36.5
== END 2024-08-16 11:37 | disposition home or self-care (01) ==
PROVIDERS: PCP Internal Medicine
DX: F84.0 Autistic disorder (principal); F48.9 Nonpsychotic mental disorder, unspecified; F69 Unspecified disorder of adult personality and behavior; S89.92XA Unspecified injury of left lower leg, initial encounter

== ENCOUNTER → 2024-08-16 11:10 | Outpatient (BNVA) | payer MEDICARE, MEDICAID, SELFPAY | PROVIDERS: PCP Internal Medicine | DX: F84.0 Autistic disorder (principal); F48.9 Nonpsychotic mental disorder, unspecified; F69 Unspecified disorder of adult personality and behavior; S89.92XD Unspecified injury of left lower leg, subsequent encounter | CPT/HCPCS: 96127; 99212 ==

== ENCOUNTER 2024-08-17 08:52 | Outpatient (REF) | payer MEDICARE, MEDICAID, SELFPAY ==
[2024-08-17 09:08] LABS: MANUAL DIFF FLAG NO
[2024-08-17 09:35] LABS: Basophils Percent Auto 0.5 % (0-2); Eosinophils Absolute Auto 0.1 X10*3/uL (0.0-0.4); Eosinophils Percent Auto 1.2 % (0-4); Hematocrit 42.8 % (42.0-52.0); Hemoglobin 14.4 g/dl (14.0-18.0); Imm Gran Abs Auto 0.03 X10*3/uL (0.00-0.03); Imm Gran Pct Auto 0.4 % (0.0-0.4); Lymphocytes Absolute Auto 1.8 X10*3/uL (1.2-4.9); Lymphocytes Percent Auto 24.9 % (20-40); Mean Corpuscular HGB Conc 33.6 g/dl (31.0-36.0); Mean Corpuscular Hemoglobin 29.3 pg (27.0-33.0); Mean Corpuscular Volume 87.2 fL (80.0-98.0); Mean Platelet Volume 12.7 fL (9.4-12.4); Monocytes Absolute Auto 0.6 X10*3/uL (0.1-1.2); Monocytes Percent Auto 7.6 % (2-11); Neutrophils Absolute Auto 4.8 x10*3/uL (2.0-8.3); Neutrophils Percent Auto 65.4 % (45-73); Platelet Count 228 X10*3/uL (160-400); Red Blood Count 4.91 X10*6/uL (4.60-5.80); Red Cell Distribution Width 12.7 % (11.0-16.0); White Blood Count 7.4 X10*3/uL (4.8-10.8)
[2024-08-17 10:17] LABS: Alanine Aminotransferase 41 U/L (0-40); Alkaline Phosphatase 53 U/L (39-117); Anion Gap 6 (12-20); Aspartate Amino Transferase 33 U/L (5-37); Bilirubin Total 1.1 mg/dL (0.0-1.0); Blood Urea Nitrogen 13 mg/dL (9-16); Calcium 9.4 mg/dL (8.4-10.2); Carbon Dioxide 29 mmol/L (22-29); Chloride 109 mmol/L (96-108); Cholesterol 161 mg/dL (<200); Estimated Glomerular Filt Rate > 60; Glucose Fasting 84 mg/dL (60-99); HDL Cholesterol 37 mg/dL (>40); LDL Cholesterol Calculated 99 mg/dL (<100); Potassium 3.7 mmol/L (3.3-5.1); Sodium 140 mmol/L (135-145); Total Protein 6.8 g/dL (6.5-8.0); Triglycerides 126 mg/dL (<150)
[2024-08-17 10:35] LABS: TSH reflex Free T4 1.25 uIU/mL (0.32-4.0); Vitamin D 25-OH Total 33.9 ng/mL (>30)
[2024-08-17 10:48] LABS: Folate 12.2 ng/mL (> or = 4.0)
[2024-08-17 10:57] LABS: Vitamin B12 344 pg/mL (200-900)
== END 2024-08-17 08:53 | disposition home or self-care (01) ==
LOC: HO.LAB 08:52
PROVIDERS: PCP Internal Medicine; Visit Provider Internal Medicine
DX: Z00.00 Encounter for general adult medical examination without abnormal findings (principal); E53.8 Deficiency of other specified B group vitamins; F84.0 Autistic disorder; Z12.5 Encounter for screening for malignant neoplasm of prostate
CPT/HCPCS: 36415; 80053; 80061; 82306; 82607; 82746; 84153; 84443; 85025

== ENCOUNTER 2024-09-09 10:28 | Outpatient (AMB) | payer MEDICARE, MEDICAID, SELFPAY ==
[2024-09-09 10:41] VITALS: BP 116/76; PULSE 65; O2SAT 98; BMI 36.6
--- NOTE | 2024-09-09 10:41 | AM.OFFVISMDC ---
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 The patient has a history of autism and obesity. He was last seen in November 2023 for his routine care. He recently experienced a fall resulting in left knee pain; an X-ray was performed, showing moderate effusion. A CAT scan of the knee was recommended but could not be completed due to behavioral challenges. Blood work conducted in August 17 showed elevated liver function tests, which is a chronic issue for the patient. All other major blood values, including blood count, electrolytes, renal function, blood sugar, cholesterol, prostate-specific antigen, vitamin B12, and vitamin D, were within normal limits. The patient has hemorrhoids noted during this visit. There were no indications of significant changes in his bloodwork since his last visit. - Cologuard testing was completed in September 2022, result not discussed. - Blood work in August 17 revealed normal blood count, electrolytes, renal function, and cholesterol levels, but elevated liver function tests. - Regular follow-up with behavioral care was advised. - Flu vaccination discussed for administration during the flu season. - Complexity due to autism impacting behavioral management. - No specific details on employment, housing, education, or family status discussed. - No data on exercise or nutritional intake was provided. - General: Reports no significant changes since the last visit. - Musculoskeletal: Reports improvement in knee pain. - Gastrointestinal: Denies blood in stools. - Labs: Blood work done in August 17 showed normal blood count, electrolytes, renal function, blood sugar, cholesterol, PSA, vitamin B12, and vitamin D levels; elevated liver function tests noted. - Imaging: X-ray of the left knee revealed moderate effusion. [facility] Medical History COVID-19 vaccine series completed Colon cancer screening Obesity (BMI 30-39.9) Vitamin B12 deficiency Obsessive compulsive disorder Impulse control disorder Mental and behavioral problem Autism Surgical History No pertinent past surgical history Family History Father No problems noted. Mother Colon cancer Social History Household Members Other:: resides in [facility] Housing: Other Housing Other:: [facility] Patient Tobacco Use Status: Never used Tobacco e-Cigarette/Vaping Use: Never Used Second Hand Smoke Exposure: No service: No Current occupational status: disabled Cognitive needs: No Hearing needs: No Vision needs: No Questionnaire Medicare Wellness Checkup What gender do you identify with?: male During the past 4 weeks, how much have you been bothered by emotional problems such as feeling anxious, depressed, irritable, sad or downhearted, and blue?: not at all During the past 4 weeks, has your physical & emotional health limited your social activities with family, friends, neighbors, or groups?: not at all During the past 4 weeks, how much bodily pain have you generally had?: no pain During the past 4 weeks, was someone available to help you if you needed & wanted help?: yes, as much as I wanted During the past 4 weeks, what was the hardest physical activity you could do for at least 2 minutes?: very light Can you get to places out of walking distance without help? (For eg., can you travel alone on buses, taxis or drive your car?): Yes Can you go shopping for groceries or clothes without someone's help?: Yes Can you prepare your own meals?: No Can you do your housework without help?: Yes Because of any health problems, do you need the help of another person with your personal care needs such as eating, bathing, dressing or getting around the house?: No Can you handle your own money without help?: No During the past 4 weeks, how would you rate your health in general?: good During the past 4 weeks how have things been going for you?: pretty well Are you having difficulties driving your car?: not applicable, I don't use a car Do you always fasten your seat belt when you are in a car?: no During past 4 weeks, have you been bothered by the following: never: Falling or dizzy when standing up, Sexual problems?, Trouble eating well?, Teeth or denture problems?, Problems using the telephone? and Tiredness or fatigue? Have you fallen 2 or more times in the past year?: Yes Are you afraid of falling?: Yes Are you a smoker?: no During the past 4 weeks, how many drinks of wine, beer, or other alcoholic beverages did you have?: no alcohol at all Do you exercise for about 20 minutes 3 or more times a week?: yes, most of the time Have you been given information to help with the following?: yes: Hazards in your house that might hurt you? and no: Keeping track of your medications? How often do you have trouble taking medicines the way you have been told to take them?: I always take medicine as prescribed How confident are you that you can control & manage most of your health problems?: not very confident What is your race?: White PHQ-9 Over the last 2 weeks, how often have you been bothered by any of the following problems? 1. Little interest or pleasure in doing things: not at all 2. Feeling down, depressed, or hopeless: not at all 3. Trouble falling or staying asleep, or sleeping too much: several days 4. Feeling tired or having little energy: not at all 5. Poor appetite or overeating: nearly every day 6. Feeling bad about yourself - or that you are a failure or have let yourself or your family down: not at all 7. Trouble concentrating on things, such as reading the newspaper or watching television: not at all 8. Moving or speaking so slowly that other people could have noticed. Or the opposite - being so fidgety or restless that you have been moving around a lot more than usual: not at all 9. Thoughts that you would be better off or of hurting yourself in some way: not at all Total score: 4 Source: Developed by Drs. Stew Marie, Luisa Holden, Bowen Garcia and colleagues, with an educational syl from [employer]. PHQ-2/PHQ-9 PHQ-2 Over the last 2 weeks, how often have you been bothered by any of the following problems? 1. Little interest or pleasure in doing things: not at all 2. Feeling down, depressed, or hopeless: not at all Total score: 0 If score is 3 or greater, continue 3. Trouble falling or staying asleep, or sleeping too much: several days 4. Feeling tired or having little energy: not at all 5. Poor appetite or overeating: nearly every day 6. Feeling bad about yourself - or that you are a failure or have let yourself or your family down: not at all 7. Trouble concentrating on things, such as reading the newspaper or watching television: not at all 8. Moving or speaking so slowly that other people could have noticed. Or the opposite - being so fidgety or restless that you have been moving around a lot more than usual: not at all 9. Thoughts that you would be better off or of hurting yourself in some way: not at all Total score: 4 0-4 None-Minimal, 5-9 Mild, 10-14 Moderate, 15-19 Moderately Severe, 20-27 Severe Source: Developed by Drs. Stew Marie, Luisa Holden, Bowen Garcia and colleagues, with an educational syl from [employer]. Thrive Questionnaire Date Thrive assessed: 09/09/24 I am a: Patient What is your living situation today?: I have a steady place to live Within the past 12 months, did the food you bought not last and you didn't have the money to get more?: Never true Within the past 12 months, did you worry whether your food would run out before you got money to buy more?: Never true Do you have trouble paying for medicines?: No Do you have trouble getting transportation to medical appointments?: No Do you have trouble paying your heating and electricity bill?: No Do you have trouble taking care of your child, family member or friend?: No Do you have trouble with day-to-day activities such as bathing, preparing meals, shopping, managing finances, etc.?: No Are you currently unemployed and looking for a job?: No Are you interested in more education?: No Please select the resources that you would like help with: None Currently or been in a relationship where the following occur: No concerns reported THRIVE Score: 0 KAILEY-7 AMB Questionnaire KAILEY-7 Date KAILEY - 7 assessed: 09/09/24 Feeling nervous, anxious, or on edge: 0 = Not at all Not being able to stop or control worryin = Not at all Worrying too much about different things: 0 = Not at all Trouble relaxin = Not at all Being so restless that it is hard to sit still: 0 = Not at all Becoming easily annoyed or irritable: 0 = Not at all Feeling afraid as if something awful might happen: 0 = Not at all Total KAILEY-7 score (0-4 normal; 5-9 mild; 10-14 moderate; 15-21 severe): 0 Source: Developed by Drs. Stew Marie, Luisa Holden, Bowen Garcia and colleagues, with an educational syl from [employer]. KAILEY-7 Assessment Billing KAILEY-7 Assessment Tool: KAILEY-7 Assessment 80677 Review of Systems Const Denies poor appetite and Denies weakness Eyes Denies no additional complaints ENT Reports Normal hearing present, Denies dizziness, Denies nasal congestion, Denies tinnitus and Denies sore throat Card Denies chest pain, Denies syncope, Denies rapid heart rate and Denies dyspnea Resp Denies cough and Denies dyspnea GI Denies change in stool character, Reports constipation, Denies diarrhea, Denies nausea and Denies vomiting Denies dysuria and Denies urinary frequency Neuro Reports Normal hearing present, Denies confusion, Denies dizziness, Denies syncope and Denies weakness Psych Denies confusion Physical Exam Vital Signs: Oxygen Delivery Method Room Air 09/09/24 10:41 Const General: No confusion Orientation/consciousness: No confusion HEENT Head: Yes normocephalic Ears: external ears normal and TM's normal bilaterally Face and sinus: Yes normal facial exam Mouth: moist mucous membranes Throat: Yes tonsils normal Eyes Conjunctivae: conjunctivae normal Pupils: Equal, round and reactive pupils present and Pupil accommodation reflex normal Direct Ophthalmoscopy: normal light reflex Neck Neck: No lymphadenopathy Thyroid: Thyroid normal Chest Chest palpation & inspection: normal inspection of the chest Resp Effort & Inspection: normal respiratory effort and no audible wheezes Auscultation: clear to auscultation bilaterally, no crackles, no wheezes and lung sounds not diminished Cardio Rate: regular rate Rhythm: regular rhythm Peripheral pulses: radial pulses present and dorsalis pedis present GI Other: Guaiac negative stools Palpation (GI): no masses Auscultation: normal bowel sounds and normoactive bowel sounds Skin General skin exam: no rashes or lesions noted Rashes: no rashes Neuro General: No confusion Cranial nerves: Yes Equal, round and reactive pupils present and Yes Normal hearing present Cognition (Neuro): normal cognition Gait exam (Neuro): Normal gait present Motor exam (neuro): 5/5 motor strength present throughout Deep tendon reflexes (DTR's): Right brachioradialis reflex intensity grade: 2+, Left brachioradialis reflex intensity grade: 2+, Right patellar reflex intensity grade: 2+ and Left patellar reflex intensity grade: 2+ Extrem Other: Left knee has a scabbed wound about 1 cm but no limitation in movement and deny any pain on palpation of the left knee General: No edema Assessment & Plan Assessment & Plan (1) Annual physical exam: Code(s): Z00.00 - Encounter for general adult medical examination without abnormal findings Plan: Patient is advised to eat healthy, keep well hydrated, keep active and have adequate sleep. (2) Obesity: Code(s): E66.9 - Obesity, unspecified Qualifiers: Obesity type: due to excess calories Obesity classification: adult class 3 (BMI >= 40) Serious obesity comorbidity presence: without serious comorbidity Body mass index: BMI 40.0-44.9 Qualified Code(s): E66.01 - Morbid (severe) obesity due to excess calories; Z68.41 - Body mass index [BMI]40.0-44.9, adult Plan: Diet and exercise (3) Autism: Comment: Dr. Mackay Code(s): F84.0 - Autistic disorder Plan: Continue follow-up with Behavioral Care (4) Left knee injury: Comment: 06/2024 Code(s): S89.92XA - Unspecified injury of left lower leg, initial encounter Qualifiers: Encounter type: initial encounter Qualified Code(s): S89.92XA - Unspecified injury of left lower leg, initial encounter Plan - Continue routine wellness care and dietary management. - Follow-up on the knee pain; consider re-evaluating for a CAT scan. - Manage hemorrhoids with conservative therapy unless symptoms worsen. - Monitor liver function tests and assess for potential need for further hepatologic evaluation. - Administer the flu vaccine today if the patient consents. - Encourage ongoing behavioral therapy and follow-ups. During the visit, we discussed the patient?s current health status, including the history of autism and obesity. I explained the importance of regular health checks and management of chronic conditions such as liver function and knee pain. I also emphasized the significance of behavioral therapy in managing autism. I provided information regarding the flu vaccine, noting its importance during the flu season and securing verbal consent for administration. Additionally, the necessity of regular follow-up visits for health maintenance and monitoring was highlighted. - Adhere to a balanced diet and exercise routine as discussed. - Monitor any changes in symptoms, particularly related to your knee and hemorrhoids. - Schedule and attend follow-up behavioral therapy sessions. - Receive the flu vaccine as discussed. - Contact the office if any new or worsening symptoms occur. - Ensure regular follow-up and obtain any necessary future health screenings. Quality Reporting (2019) Depression/Bipolar (159/160/161/177) PHQ-9: Total score: 4 Coding Level of Care Code Medicare Subsequent (G0439) Diagnoses Annual physical exam Z00.00 Class 3 severe obesity due to excess calories without serious comorbidity with body mass index (BMI) of 40.0 to 44.9 in adult E66.01; Z68.41 Obesity type: due to excess calories Obesity classification: adult class 3 (BMI >= 40) Serious obesity comorbidity presence: without serious comorbidity Body mass index: BMI 40.0-44.9 Autism F84.0 Injury of left knee, initial encounter S89.92XA Encounter type: initial encounter Additional Codes KAILEY-7 Assessment Billing - KAILEY-7 Assessment Tool: KAILEY-7 Assessment [id number] ([id number])
== END 2024-09-09 11:05 | disposition home or self-care (01) ==
PROVIDERS: PCP Internal Medicine; Visit Provider Internal Medicine
DX: Z00.00 Encounter for general adult medical examination without abnormal findings (principal); E66.01 Morbid (severe) obesity due to excess calories; Z68.41 Body mass index [BMI] 40.0-44.9, adult; F84.0 Autistic disorder; S89.92XA Unspecified injury of left lower leg, initial encounter

== ENCOUNTER → 2024-09-09 10:28 | Outpatient (BNVA) | payer MEDICARE, MEDICAID, SELFPAY | PROVIDERS: PCP Internal Medicine; Visit Provider Internal Medicine | DX: Z00.00 Encounter for general adult medical examination without abnormal findings (principal); E66.01 Morbid (severe) obesity due to excess calories; Z68.41 Body mass index [BMI] 40.0-44.9, adult; Z71.3 Dietary counseling and surveillance; F84.0 Autistic disorder; S89.92XD Unspecified injury of left lower leg, subsequent encounter | CPT/HCPCS: 96127 ==

== ENCOUNTER 2024-10-06 16:22 | Outpatient (REF) | payer MEDICARE, MEDICAID, SELFPAY ==
--- NOTE | ~2024-10-06 | CT_ITS ---
CLINICAL HISTORY: M23.42 - Loose body in knee, left knee CT without contrast Comparison: CR/SR - XR KNEE LT 4V - 07/19/24 10:27 EST Findings: No soft tissue fluid collections. Arterial vascular calcifications are present. No acute fracture. Moderate tricompartmental periarticular osteophyte formation. 3 mm ossific focus of the posterior aspect of the lateral tibial plateau, suggestive of an intra-articular loose body within a synovial protrusion along the popliteus. Prominent tibial spine osteophytes. 2 mm intra-articular loose body within the central aspect of the knee joint (series 4, image 36). 9 mm well corticated ossific focus at the posterior aspect of the lateral tibial plateau, consistent with a loose body within a ganglion cyst along the popliteus. IMPRESSION: 1. Osteoarthritis. 2. Intra-articular loose bodies. This document has been electronically signed by: Mariana Prado MD on 10/07/2024 15:38:52
== END 2024-10-06 16:23 | disposition home or self-care (01) ==
LOC: HO.CT 16:22
PROVIDERS: PCP Internal Medicine
DX: M23.42 Loose body in knee, left knee (principal)
CPT/HCPCS: 73700

== ENCOUNTER → 2024-10-06 16:25 | Outpatient (BNV) | payer MEDICARE, MEDICAID, SELFPAY | PROVIDERS: PCP Internal Medicine; Visit Provider Radiology Diagnostic Radiology | DX: M17.12 Unilateral primary osteoarthritis, left knee (principal); M23.42 Loose body in knee, left knee | CPT/HCPCS: 73700 ==

== ENCOUNTER 2024-11-30 14:26 | Outpatient (AMB) | payer MEDICARE, MEDICAID, SELFPAY ==
--- NOTE | 2024-11-30 14:43 | MHC.OFFVIS ---
Vital Signs 11/30/24 14:50 Height 6 ft 2 in Weight 285 lb BMI 36.6 Intake Visit Reasons: ELIGIBILITY EXAMINER- Left knee loose body, CT done Intake Note: José Luis is a 54 year old male who presents today with a staff member from facility for a new patient evaluation of his left knee, loose body. CT done. Patient staff member reports that patient had a fall on his left knee during the winter time. Patient denies pain. Allergies Penicillins [PENICILLINS] Allergy (Mild, Verified 11/30/24 14:50) UNKNOWN Medication List - Last Reconciled 11/30/24 by Prabhjot Garcia PA-C acetaminophen (Tylenol) 975 mg (3 x 325 mg) PO Q4H PRN acetaminophen 650 mg (2 x 325 mg) PO Q4H PRN bisacodyl (Dulcolax (bisacodyl)) 10 mg (2 x 5 mg) PO ONCE 1 day cholecalciferol (vitamin D3) (Vitamin D3) 25 mcg PO QAM clonazepam 2 mg PO BID PRN dextromethorphan-guaifenesin 5-100 mg/5 mL (Robitussin Cough-Chest Congestion DM) 10 mL PO .Q 4 hours PRN docusate calcium (Stool Softener (docusate calcium)) 240 mg PO QAM fluoxetine (Prozac) 20 mg PO DAILY ibuprofen 600 mg PO Q8H PRN lorazepam 2 mg PO DAILY PRN magnesium citrate 150 mL PO DAILY polyethylene glycol 3350 (Miralax) 238 grams PO ONCE 1 day risperidone (Risperdal) 2 mg PO BEDTIME risperidone (Risperdal) 1 mg PO DAILY HPI HPI ELIGIBILITY EXAMINER- Left knee loose body, CT done: Details: Patient is a 54-year-old gentleman who presents to the office today who is accompanied by a care worker. He does answer questions however needs guidance from his care worker to answer questions. 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 [facility] Medical History COVID-19 vaccine series completed Colon cancer screening Obesity (BMI 30-39.9) Vitamin B12 deficiency Obsessive compulsive disorder Impulse control disorder Mental and behavioral problem Autism Surgical History No pertinent past surgical history Family History Father No problems noted. Mother Colon cancer Social History Household Members Other:: resides [place] [facility] Housing: Other Housing Other:: [facility] Patient Tobacco Use Status: Never used Tobacco e-Cigarette/Vaping Use: Never Used Second Hand Smoke Exposure: No service: No Current occupational status: disabled Cognitive needs: No Hearing needs: No Vision needs: No Review of Systems Const All systems reviewed & are unremarkable except as noted in HPI and below Physical Exam Vital Signs: BMI result Body Mass Index 36.6 Const General: cooperative and no acute distress Orientation/consciousness: patient oriented x3 Resp Effort & Inspection: normal respiratory effort and able to speak in complete sentences Cardio Peripheral pulses: Peripheral pulses 2+ throughout Neuro General: patient oriented x3 Extrem Other: Left knee is normal to inspection. No erythema or joint effusion. He has full range of motion without pain. No tenderness to palpation. Calf supple and nontender neurovascularly intact. Results Reviewed Results Reviewed: X-rays of both knees obtained in the office today and reviewed by me are negative for any acute or chronic abnormalities. CT scan of the left knee obtained on 10/07/2024 IMPRESSION: 1. Osteoarthritis. 2. Intra-articular loose bodies. Assessment & Plan Assessment & Plan (1) Patellofemoral arthritis of left knee: Code(s): M17.12 - Unilateral primary osteoarthritis, left knee Category: Medical Plan: We discussed options today which include conservative management with physical therapy. An order was placed today. He will modify activities as tolerated and if symptoms persist or worsen the patient will contact our office otherwise follow up as needed. Orders: Orders XR knee LT 2V Today M25.562 - Pain in left knee PT Evaluation and Treatment Today M17.12 - Unilateral primary osteoarthritis, left knee Coding Level of Care Code New Pt Level 3 (68822) Complex EM visit Add On G2211 Diagnoses Patellofemoral arthritis of left knee M17.12
[2024-11-30 14:50] VITALS: BMI 36.6
== END 2024-11-30 14:59 | disposition home or self-care (01) ==
LOC: HO.HOS 14:26
PROVIDERS: PCP Internal Medicine; Visit Provider Physician Assistant
DX: M17.12 Unilateral primary osteoarthritis, left knee (principal)
CPT/HCPCS: 99203; G2211

== ENCOUNTER 2024-11-30 14:37 | Outpatient (REF) | payer MEDICARE, MEDICAID, SELFPAY ==
--- NOTE | ~2024-11-30 | XR_ITS ---
EXAMINATION: XR KNEE, LEFT CLINICAL INFORMATION: M25.562 - Pain in left knee COMPARISON: 07/19/2024. TECHNIQUE: AP view bilateral knees standing, patellofemoral view left knee. FINDINGS: Right Knee: No fracture or dislocation. No malalignment. Mild to moderate medial and mild lateral compartment joint space narrowing with mild marginal spurring. Mild spurring of the tibial spines. Normal soft tissues. Left Knee: No fracture, dislocation, or suspicious bone lesion. Moderate medial and mild lateral and patellofemoral compartment osteoarthrosis. Mild spurring of the tibial spines. Normal soft tissues. XR/XR knee LT 2V IMPRESSION: 1. No acute bony abnormalities left knee. Moderate medial and mild lateral and patellofemoral compartment osteoarthrosis. Electronically signed by: Steve Singh MD 11/30/2024 02:51 PM EDT
== END 2024-11-30 14:38 | disposition home or self-care (01) ==
LOC: HO.HOSX 14:37
PROVIDERS: Visit Provider Physician Assistant
DX: M17.12 Unilateral primary osteoarthritis, left knee (principal); M23.42 Loose body in knee, left knee
CPT/HCPCS: 73560; 99202

== ENCOUNTER → 2024-11-30 14:39 | Outpatient (BNV) | payer MEDICARE, MEDICAID, SELFPAY | PROVIDERS: Visit Provider Radiology Diagnostic Radiology | DX: M25.562 Pain in left knee (principal) | CPT/HCPCS: 73560 ==